=== PATIENT | male | born 1965 | race Caucasian/White ===

== ENCOUNTER 2018-04-01 08:59 | Day surgery (SDC) | payer OTHER ==
[2018-04-01] MEDS ORDERED: PROPOFOL 40 ML (09:54)
[2018-04-01] MEDS ORDERED: LIDOCAINE 100 MG SYRINGE (09:54)
== END 2018-04-01 13:24 | disposition home or self-care (01) ==
LOC: GIL 08:59
DX: Z12.11 Encounter for screening for malignant neoplasm of colon (principal); K64.4 Residual hemorrhoidal skin tags; K64.8 Other hemorrhoids; K57.30 Diverticulosis of large intestine without perforation or abscess without bleeding; I10 Essential (primary) hypertension; I25.10 Atherosclerotic heart disease of native coronary artery without angina pectoris; I48.91 Unspecified atrial fibrillation
CPT/HCPCS: 45380; 88305